=== PATIENT | female | born 1960 | race American Indian/Alaskan Native ===

== ENCOUNTER 2019-07-02 21:40 | Emergency (ER) | payer MEDICARE ==
[2019-07-02 21:59] VITALS: BP 120/86
--- NOTE | 2019-07-02 22:23 | Emergency Department Report ---
Blank Doc - Documentation Documentation: 59-year-old female that presents with right foot pain. This initial assessment/diagnostic orders/clinical plan/treatment(s) is/are subject to change based on patient's health status, clinical progression and re- assessment by fellow clinical providers in the ED. Further treatment and workup at subsequent clinical providers discretion. Patient/guardians urged not to elope from the ED as their condition may be serious if not clinically assessed and managed. Initial orders include: 1- Patient sent to [facility] for further evaluation and treatment 2- xrays
--- NOTE | 2019-07-02 22:55 | XRay Report ---
HISTORY:RIGHT FOOT PAIN COMPARISON: None. TECHNIQUE: AP lateral and obliques views were obtained FINDINGS: Bones: No fracture or dislocation. Joint spaces: Maintained. Soft tissues: No significant abnormality. Additional findings: None. IMPRESSION: 1. No significant abnormality. Signer Name: Magdy Francois MD Signed: 07/02/2019 10:51 PM Workstation Name: [id number]
--- NOTE | 2019-07-03 01:07 | Emergency Department Report ---
ED Fall HPI - General Chief Complaint: Extremity Injury, Lower Stated Complaint: FALL Time Seen by Provider: 07/02/19 22:22 Source: patient Mode of arrival: Ambulatory - History of Present Illness Initial Comments: 59-year-old -Iranian female presents to the emergency room for right foot pain and bilateral knee pain status post fall on Saturday. Patient denies hitting her head or having any dizziness prior to fall. Patient states when she fell her right foot bent back and she landed on both knees. Patient reports that the pain is worse in her right foot. Patient states walking on it makes it worse. Patient states resting it improves. MD Complaint: fall Onset/Timin -: days(s) Fall From: standing When Fall Occurred: # days [employer] (4) Fall Witnessed: yes, by family Place Fall Occurred: street Loss of Consciousness: none Prolonged Down Time?: no Symptoms Prior to Fall: none Location - Extremities: Left: Knee, Right: Knee, Foot Severity: moderate Quality: sharp Context: tripped/slipped Associated Symptoms: denies. denies: headache, neck pain, numbness, weakness, chest paint, shortness of breath - Related Data Allergies Allergy/AdvReac Type Severity Reaction Status Date / Time No Known Allergies Allergy Unverified 07/02/19 22:20 ED Review of Systems ROS: Stated complaint: FALL Other details as noted in HPI Comment: All other systems reviewed and negative ED Past Medical Hx - Past Medical History Previous Medical History?: Yes Hx Psychiatric Treatment: Yes (BIPOLAR, DEPRESSION) - Surgical History Past Surgical History?: Yes Additional Surgical History: TUBAL LIGATION - Social History Smoking Status: Never Smoker Substance Use Type: None ED Physical Exam - General Limitations: No Limitations General appearance: alert, in no apparent distress - Head Head exam: Present: atraumatic, normocephalic - Eye Eye exam: Present: normal appearance - ENT ENT exam: Present: normal exam, mucous membranes moist - Neck Neck exam: Present: normal inspection, full ROM - Expanded Lower Extremity Exam Right Hip exam: Present: full ROM Upper Leg exam: Present: normal inspection Knee exam: Present: normal inspection, full ROM, tenderness. Absent: swelling Foot/Toe exam: Present: full ROM. Absent: tenderness, swelling, deformity, dislocation, erythema Neuro vascular tendon exam: Present: no vascular compromise Left Hip exam: Present: full ROM Upper Leg exam: Present: normal inspection, full ROM Knee exam: Present: normal inspection, full ROM, tenderness. Absent: swelling, abrasion, laceration - Back Exam Back exam: Present: full ROM - Neurological Exam Neurological exam: Present: alert, oriented X3 - Psychiatric Psychiatric exam: Present: normal affect, normal mood - Skin Skin exam: Present: warm, dry, intact, normal color. Absent: rash ED Course Vital Signs 07/02/19 21:58 Temperature 98.3 F Pulse Rate 88 Respiratory 18 Rate Blood Pressure 120/86 O2 Sat by Pulse 99 Oximetry ED Medical Decision Making - Medical Decision Making 59-year-old -Iranian female presents to the emergency room for right foot pain and bilateral knee pain status post fall on Saturday. Patient denies hitting her head or having any dizziness prior to fall. Patient states when she fell her right foot bent back and she landed on both knees. Patient reports that the pain is worse in her right foot. Patient states walking on it makes it worse. Patient states resting it improves. X-ray is negative for any acute findings of her right foot. Recommend ibuprofen and use a frozen water bottle and she can massage the bottom of her foot with it. Follow-up with her primary care provider if his symptoms persist Critical care attestation.: If time is entered above; I have spent that time in minutes in the direct care of this critically ill patient, excluding procedure time. ED Disposition Clinical Impression: Fall Qualifiers: Encounter type: initial encounter Qualified Code(s): W19.XXXA - Unspecified fall, initial encounter Right foot strain Qualifiers: Encounter type: initial encounter Qualified Code(s): S96.911A - Strain of unspecified muscle and tendon at ankle and foot level, right foot, initial encounter Knee pain, bilateral Qualifiers: Chronicity: acute Qualified Code(s): M25.561 - Pain in right knee; M25.562 - Pain in left knee Disposition: - TO HOME OR SELFCARE Is pt being admited?: No Does the pt Need Aspirin: No Condition: Stable Additional Instructions: X-ray is negative for any acute findings of her right foot. Recommend ibuprofen and use a frozen water bottle and she can massage the bottom of her foot with it. Follow-up with her primary care provider if his symptoms persist Referrals: LEROY KELLY MD [Primary Care Provider] - 3-5 Days
== END 2019-07-03 01:35 | disposition home or self-care (01) ==
LOC: ED 21:40
DX: S96.911A Strain of unspecified muscle and tendon at ankle and foot level, right foot, initial encounter (principal); M25.561 Pain in right knee; M25.562 Pain in left knee; F31.9 Bipolar disorder, unspecified; Z98.51 Tubal ligation status; W19.XXXA Unspecified fall, initial encounter; Y93.89 Activity, other specified; Y92.89 Other specified places as the place of occurrence of the external cause; Y99.8 Other external cause status
CPT/HCPCS: 99283